=== PATIENT | male | born 1980 | race African-American/Black ===

== ENCOUNTER 2020-08-10 06:20 | Inpatient (IN) | payer OTHER, SELFPAY ==
[~2020-08-10] VITALS: Ht 172.7 cm; Wt 33.1 kg
[2020-08-10] VITALS (9 sets, daily range): BP systolic 112–139; BP diastolic 60–87
--- NOTE | 2020-08-10 06:23 | NUR ---
PT DUONG BLS. TAKEN TO BED 3
--- NOTE | 2020-08-10 07:08 | NUR ---
Dr. Singh examining patient.
--- NOTE | 2020-08-10 07:26 | NUR ---
REPORT RECEIVED FROM SIDNEY TIM, TRANSFER OF CARE AT THIS TIME.
--- NOTE | 2020-08-10 07:40 | NUR ---
39 YEAR OLD MALE BIBA FROM [facility] FOR PULLING OUT TRACH. PER PREVIOUS NURSE THE FACILITY ATTEMPTED TO PLACE TRACH BACK BUT WAS UNSUCESSFUL AND PLACED PT ON 2L NC. PT IS ON MONITOR, RR 20, SPO2 98% ON 2L NC. PT ALERT AND AWAKE, BREATHING EVEN AND UNLABORED, SKIN WARM AND DRY. BED IN LOWEST POSITION, LOCKED, BED RAIL UPX1. PMH - HTN, ARF, TRACH, DYSPHAGIA, ENCEPHALOPATHY, CONTRACTURES ALLERGIES - NKA
--- NOTE | 2020-08-10 08:00 | NUR ---
ERMD AT BEDSIDE WITH RT
--- NOTE | 2020-08-10 09:00 | NUR ---
PT ALERT AND AWAKE, BREATHING EVEN AND UNLABORED. NO DISTRESS NOTED.
[2020-08-10] MEDS ORDERED: ONDANSETRON 4 MG/2 ML VIAL IVP PRN (09:05)
[2020-08-10] MEDS ORDERED: HYDROcodone/APAP 5/325 MG 1 TAB TAB PO PRN (09:05)
[2020-08-10] MEDS ORDERED: ACETAMINOPHEN 325 MG TAB PO PRN (09:05)
[2020-08-10] MEDS ORDERED: MAG SULF 2000 MG/WATER PREMIX 50 ML IV PRN (09:05)
[2020-08-10] MEDS ORDERED: KCL 20 MEQ/WATER INJ PREMIX 200 ML IV PRN (09:05)
[2020-08-10] MEDS ORDERED: ZOLPIDEM 5 MG TAB PO PRN (09:05)
[2020-08-10] MEDS ORDERED: POTASSIUM CHLORIDE 10 MEQ TABER PO PRN (09:05)
[2020-08-10] MEDS ORDERED: MAGNESIUM OXIDE 400 MG TAB PO PRN (09:05)
[2020-08-10] MEDS ORDERED: LORazepam 1 MG TAB PO PRN (09:05)
--- NOTE | 2020-08-10 10:07 | NUR ---
Dr. Verduzco is evaluating the patient at bedside.
[2020-08-10] MEDS: DEXT 5% / NACL 0.45% 1,000 ML IV SCH ×2 (10:39→21:35)
[2020-08-10 10:41] LABS: BASOPHILS # (AUTO) 0.1 K/uL (0.00-0.22); BASOPHILS % (AUTO) 0.6 % (0.0-2.0); EOSINOPHILS # (AUTO) 0.3 K/uL (0-0.4); EOSINOPHILS % (AUTO) 3.6 % (0.0-4.0); HEMATOCRIT 46.3 % (36-52); HEMOGLOBIN 15.7 g/dL (12.0-18.0); LYMPHOCYTES # (AUTO) 3.2 K/uL (2.0-11.5); LYMPHOCYTES % (AUTO) 35.1 % (20.5-51.1); MEAN CORPUSCULAR HEMOGLOBIN 32 pg (27-31); MEAN CORPUSCULAR HGB CONC 34 g/dL (33-37); MONOCYTES # (AUTO) 0.6 K/uL (0.8-1.0); NEUTROPHILS % (AUTO) 53.7 % (42.2-75.2); PLATELET COUNT (AUTO) 204 K/uL (140-450); RED BLOOD CELL COUNT(AUTO) 4.93 MIL/uL (4.20-6.10); RED CELL DISTRIBUTION WIDTH 13.2 % (11.6-13.7); WHITE BLOOD COUNT (AUTO) 9.2 K/uL (4.8-10.8)
[2020-08-10 10:52] LABS: ANION GAP 12.3 (8-16); CREATININE 0.6 mg/dL (0.6-1.3); POTASSIUM 4.3 mmol/L (3.5-5.1)
[2020-08-10 10:58] LABS: ALBUMIN 3.9 g/dL (3.4-5.0); TOTAL BILIRUBIN 0.5 mg/dL (0.0-1.0)
--- NOTE | 2020-08-10 11:04 | NUR ---
PT ALERT AND AWAKE, BREATHING EVEN AND UNLABORED. NO DISTRESS NOTED.
[2020-08-10 11:14] LABS: PROTHROMBIN TIME 10.6 secs (10.8-13.4)
[2020-08-10] MEDS: ALBUTEROL SULFATE/IPRATROPIU 3 ML SOL IH SCH ×2 (13:00→19:00)
[2020-08-10] MEDS ORDERED: MULT-2253 GT (13:09)
[2020-08-10] MEDS ORDERED: CRAN450T5 GT (13:09)
[2020-08-10] MEDS ORDERED: SCOP1PAT TP (13:09)
[2020-08-10] MEDS ORDERED: ASPI-1822 GT (13:09)
[2020-08-10] MEDS ORDERED: FAMO-90 GT (13:09)
[2020-08-10] MEDS ORDERED: METO25TA PO (13:09)
[2020-08-10] MEDS ORDERED: BACL10TA4 GT (13:09)
[2020-08-10] MEDS ORDERED: KEP500L GT (13:09)
[2020-08-10] MEDS ORDERED: VALP-22 GT (13:09)
[2020-08-10] MEDS ORDERED: ASCO500T95 PO (13:09)
[2020-08-10] MEDS ORDERED: CHLO118S1 MT (13:09)
--- NOTE | 2020-08-10 13:33 | NUR ---
PT REPORT GIVEN TO CARMELITA FROM SURGICAL TEAM, PT TAKEN TO SURGERY AT THIS TIME
--- NOTE | 2020-08-10 13:33 | NUR ---
[facility] in [facility] - 08/10/20 at 1335 by MEDRobelJ PT TAKEN TO SURGERY BY CARMELITA
--- NOTE | 2020-08-10 13:36 | NUR ---
ATTEMPTED TO ADMNISTER SCHEDULED BREATHING TX PT BEING TAKEN TO OR AT THIS TIME. WILL CONTINUE TO MONITOR.
[2020-08-10] MEDS ORDERED: fentaNYL citrate 0.05 MG/ML VIAL ONE (14:10)
[2020-08-10] MEDS ORDERED: PROPOFOL 200 MG/20 ML VIAL IV ONE (14:10)
[2020-08-10] MEDS ORDERED: MIDAZOLAM 2 MG/2 ML VIAL ONE (14:10)
--- NOTE | 2020-08-10 15:20 | NUR ---
PT ARRIVED FROM OR S/P TRACH RE-PLACEMENT AND BRONCHOSCOPY, PT AWAKE, EYES OPEN, TRACKS, PT NON VERBAL, DOES NOT FOLLOW COMMAND, RESP EVEN UNLABORED WITH TRACH TO O2, PT SEVERELY CONTRACTED ON ALL EXT, SKIN WARM DRY COLOR WNL, SKIN INTACT, ALL SAFETY MEASURES IN PLACE, POC REVIEWED, WILL CONTINUE TO MOTNIOR.
--- NOTE | 2020-08-10 15:24 | NUR ---
PER REQUEST OF PT PLACED ON VENT. SETTINGS PROVIDED BY PHYSICIAN A/C VC 16, VT450, PEEP 5 AND FIO2 100%. PT NEW TRACH PORTEX [address]. NURSE AWARE OF PT STATUS. WILL CONTINUE TO MONITOR.
[2020-08-10] MEDS: VALPROIC ACID 250 MG/5 ML UDC GT SCH (17:00)
--- NOTE | 2020-08-10 17:20 | NUR ---
SCHEDULED MED GIVEN VIA GT, CLIFFORD VALVE CHANGED, LARGE AMOUNT GAS RELEASED UPON OPENING GT, NO RESIDUAL NOTED.
--- NOTE | 2020-08-10 17:50 | NUR ---
DR ROMERO AT BEDSIDE, NOTIFIED OF BLEEDING FROM TRACH SITE AND BLOODY EMESIS, REPEAT CBC AND TYPE AND SCREEN ORDERED, PT'S MARCE PHONED TO NOTIFY OF ADMISSION AND CONSENTED FOR BLOOD TRANSFUSION IN CASE NEEDED.
--- NOTE | 2020-08-10 19:02 | NUR ---
PT WITH BLOODY EMESIS AND WOOZING AT TRACH SITE, CALLED DR KUMAR IN OR TO REQUEST RE-EVALUATION.
--- NOTE | 2020-08-10 20:00 | NUR ---
RECEIVED PATIENT ON BED WITH HOB ELEVATED TO 30 DEGREE; ON TRACH TO VENT AT 70% FIO2 S02 98%.CARDIACSCOPE SHOWS ON SINUS TACHY WITH OCCASIONAL PVC'S . COMMENING ON IVF D5 1/2 NS AT 80 ML/HR VIA G 20 IV CANNULA ON LEFT AC; PATENT AND INTACT. ABDOMEN IS SOFT, OBESE; G TUBE IN PLACE AND NOTED PATIENT HAD ON AND OFF COFFEE GROUND EMESIS ; KEPT PATIENT ON NPO.
[2020-08-10 20:39] LABS: BASOPHILS # (AUTO) 0.1 K/uL (0.00-0.22); BASOPHILS % (AUTO) 0.5 % (0.0-2.0); EOSINOPHILS # (AUTO) 0.2 K/uL (0-0.4); EOSINOPHILS % (AUTO) 1.7 % (0.0-4.0); HEMATOCRIT 48.2 % (36-52); HEMOGLOBIN 16.2 g/dL (12.0-18.0); LYMPHOCYTES # (AUTO) 2.9 K/uL (2.0-11.5); LYMPHOCYTES % (AUTO) 25.9 % (20.5-51.1); MEAN CORPUSCULAR HEMOGLOBIN 32 pg (27-31); MEAN CORPUSCULAR HGB CONC 34 g/dL (33-37); MEAN CORPUSCULAR VOLUME 94.4 fL (80-94); MONOCYTES # (AUTO) 0.8 K/uL (0.8-1.0); NEUTROPHILS # (AUTO) 7.2 K/uL (1.8-7.7); NEUTROPHILS % (AUTO) 64.9 % (42.2-75.2); RED BLOOD CELL COUNT(AUTO) 5.11 MIL/uL (4.20-6.10); RED CELL DISTRIBUTION WIDTH 12.8 % (11.6-13.7)
[2020-08-10] MEDS: levETIRAcetam 100 MG/ML ORASYR GT SCH (21:00)
[2020-08-10] MEDS: ASCORBIC ACID 500 MG/5 ML ORASYR GT SCH (21:00)
[2020-08-10] MEDS ORDERED: SCOPOLAMINE 1.5 MG/72 HR PATCH TD SCH (21:00)
[2020-08-10] MEDS: BACLOFEN 10 MG TAB GT SCH (21:00)
[2020-08-10 22:18] LABS: PLATELET COUNT (AUTO) 134 K/uL (140-450)
--- NOTE | 2020-08-10 22:45 | NUR ---
PATIENT STILL HAD COFFEE GROUND VOMITTING; G TUBE CONNECTED TO INTERMITTENT SUCTION ORDERED BY DR. HUGHES.
[2020-08-11] VITALS (12 sets, daily range): BP systolic 110–154; BP diastolic 51–83
--- NOTE | 2020-08-11 00:30 | NUR ---
MARTEL CATH INSERTED; HAD BM TO A LARGE AMOUNT OF SOFT, PASTY YELLOW STOOL; KEPT CLEAN, DRY AND COMFORTABLE.
[2020-08-11] MEDS: ALBUTEROL SULFATE/IPRATROPIU 3 ML SOL IH SCH ×3 (01:00→12:54)
--- NOTE | 2020-08-11 04:00 | NUR ---
STILL WITH COFFEE GROUND GASTRIC OUTPUT FROM THE G TUBE. MORNING CARE DONE
[2020-08-11] MEDS: levETIRAcetam 100 MG/ML ORASYR GT SCH ×2 (05:00→13:13)
[2020-08-11 06:00] LABS: BASOPHILS # (AUTO) 0.1 K/uL (0.00-0.22); BASOPHILS % (AUTO) 0.5 % (0.0-2.0); EOSINOPHILS # (AUTO) 0.2 K/uL (0-0.4); EOSINOPHILS % (AUTO) 1.5 % (0.0-4.0); HEMATOCRIT 48.2 % (36-52); HEMOGLOBIN 16.2 g/dL (12.0-18.0); LYMPHOCYTES # (AUTO) 2.9 K/uL (2.0-11.5); LYMPHOCYTES % (AUTO) 20.4 % (20.5-51.1); MEAN CORPUSCULAR HEMOGLOBIN 32 pg (27-31); MEAN CORPUSCULAR HGB CONC 34 g/dL (33-37); MEAN CORPUSCULAR VOLUME 94.4 fL (80-94); MONOCYTES # (AUTO) 1.4 K/uL (0.8-1.0); MONOCYTES % (AUTO) 9.6 % (1.7-9.3); NEUTROPHILS # (AUTO) 9.6 K/uL (1.8-7.7); PLATELET COUNT (AUTO) 209 K/uL (140-450); RED CELL DISTRIBUTION WIDTH 13.1 % (11.6-13.7); WHITE BLOOD COUNT (AUTO) 14.1 K/uL (4.8-10.8)
[2020-08-11 06:17] LABS: MAGNESIUM 1.9 mg/dL (1.8-2.4); PHOSPHORUS 3.9 mg/dL (2.5-4.9)
[2020-08-11 06:29] LABS: ALBUMIN 3.9 g/dL (3.4-5.0); CREATININE 0.7 mg/dL (0.6-1.3); TOTAL BILIRUBIN 0.6 mg/dL (0.0-1.0)
--- NOTE | 2020-08-11 07:20 | NUR ---
ENDORSED TO AM SHIFT RN LEONEL FOR CONTINUITY OF CARE.
--- NOTE | 2020-08-11 07:30 | NUR ---
RECEIVE REPORT FROM OLEKSANDR RN HE IS TRACH TO VENT ALL EXTREAMITY SEVERELY CONTRACTED NECK IS CONTRACTED TO LEFT SIDE' TRACH TO VENT FIO2 70% SAT 100% ABDO MEN FLAT, GTUBETO INTERMITTEN SUCTION HAS COFFEE GROUND RETURN. MARTEL CATH DRAIN YELLOW URINE.
--- NOTE | 2020-08-11 08:00 | NUR ---
ORAL CARE WITH VAP KIT. SKIN CARE GIVEN.
--- NOTE | 2020-08-11 08:22 | NUR ---
PATIENT HAS BEEN SCREENED AND CATEGORIZED HIGH NUTRITION RISK. PATIENT WILL BE SEEN WITHIN 1-2 DAYS OF ADMISSION. 08/11/[address]
[2020-08-11] MEDS ORDERED: FAMOTIDINE 20 MG TAB GT SCH (09:00)
[2020-08-11] MEDS ORDERED: METOPROLOL 25 MG TAB GT SCH (09:00)
[2020-08-11] MEDS ORDERED: DOCUSATE SODIUM 100 MG GELCAP PO SCH (09:00)
--- NOTE | 2020-08-11 09:15 | NUR ---
VISIT BY DR ENCARNACION AT BEDSIDE , ORDER RECEIVE FIO2 DECREASE FROM 70 % TO 30% . D/C IV FLUID AND G. TUBE TO SUCTION .START GT FEEDING MED AND FLUID VAI GT,.
--- NOTE | 2020-08-11 09:44 | NUR ---
at bedside and decreased fio2 to 30%
[2020-08-11] MEDS: BACLOFEN 10 MG TAB GT SCH (09:56)
[2020-08-11] MEDS: VALPROIC ACID 250 MG/5 ML UDC GT SCH ×2 (09:57→13:13)
[2020-08-11] MEDS: ASCORBIC ACID 500 MG/5 ML ORASYR GT SCH (09:58)
--- NOTE | 2020-08-11 10:00 | NUR ---
DC LOCKSTITCH TOPSTITCHER: PATIENT WILL DC BACK TO [facility] TODAY. PER NATALEE AT [facility] PATIENT CAN GO TO ROOM 8-A UNDER DR. ROMERO. Addendum: 08/11/20 at 1048 by Carolina Feliciano CM DC LOCKSTITCH TOPSTITCHER: SET UP TRANSPORTATION WITH [facility] [phone] FOR 1:30 PM. NOTIFIED ICU NURSE AND NATALEE AT [facility].
--- NOTE | 2020-08-11 10:40 | NUR ---
RECEIVED CALL FROM [facility] GRANULAR OPERATOR FOR TRANSPORT WITH [facility] @ [phone] TO [facility].
--- NOTE | 2020-08-11 11:00 | NUR ---
SLEEPING. V/S WITH IN NORMAL LIMIT.
--- NOTE | 2020-08-11 12:43 | NUR ---
TALKED TO MARCE [phone], AWARE PT IS GOING BACK TO SNF
--- NOTE | 2020-08-11 13:40 | NUR ---
PICK UPBY [facility] TRANSFER TO [facility] . PT. CONDITION STABLE.
== END 2020-08-11 13:40 | DRG 143 ==
LOC: MED 06:20 → MTU 09:16 → MIC 15:14
PROVIDERS: ADMIT Hospitalist; ATTEND Hospitalist
PROC: 0BJ08ZZ Inspection of Tracheobronchial Tree, Via Natural or Artificial Opening Endoscopic (ICD-10-PCS; 2020-08-10)
PROC: 5A1935Z Respiratory Ventilation, Less than 24 Consecutive Hours (ICD-10-PCS; 2020-08-10)
PROC: 0B21XFZ Change Tracheostomy Device in Trachea, External Approach (ICD-10-PCS; principal; 2020-08-10 12:50)
DX: J95.03 Malfunction of tracheostomy stoma (principal); R53.2 Functional quadriplegia; G40.909 Epilepsy, unspecified, not intractable, without status epilepticus; R13.10 Dysphagia, unspecified; G93.40 Encephalopathy, unspecified; Y83.8 Other surgical procedures as the cause of abnormal reaction of the patient, or of later complication, without mention of misadventure at the time of the procedure; J96.11 Chronic respiratory failure with hypoxia; I10 Essential (primary) hypertension; M41.9 Scoliosis, unspecified; Z20.828 Contact with and (suspected) exposure to other viral communicable diseases; Z74.01 Bed confinement status; Z87.820 Personal history of traumatic brain injury; Y92.89 Other specified places as the place of occurrence of the external cause
CPT/HCPCS: 36415; 36600; 71045; 80053; 82803; 83036; 83735; 83880; 84100; 85025; 85610; 85730; 86886; 86900; 86901; 93005; 94002; 94003; 94640; 99285; J2250; J2405; J2704; J3010; U0003

== ENCOUNTER 2021-05-26 14:54 | Inpatient (IN) | payer OTHER, SELFPAY ==
[~2021-05-26] VITALS: Ht 172.7 cm; Wt 65.8 kg
[2021-05-26 14:54] VITALS: BP 105/55
[~2021-05-26 14:54] MED LIST: ASCO500T95 GT; ASPI-1822 GT; BACL10TA4 GT; CHLO118S1 MT; CRAN450T5 GT; FAMO-90 GT; KEP500L GT; METO25TA GT; MULT-2253 GT; SCOP0.333 TP; VALP-22 GT
--- NOTE | 2021-05-26 14:54 | NUR ---
PT BIBA AND PLACED IN BED 10.
--- NOTE | 2021-05-26 15:00 | NUR ---
40 Y/O M BIBA FROM [facility], C/O ABD PAIN (ACCORDING TO NURSE GIVING REPORT), ABD DISTENTION AND BLOOD IN MARTEL FROM YESTERDAY. [facility] REMOVED MARTEL YESTERDAY. PT VOIDED YESTERDAY. THIS MORNING, NO URINE OUTPUT WITH BLADDER DISTENDED. ATTEMPTED REINSERTION OF MARTEL, UNSUCCESSFUL. PT HAD FEVER 103 AT FACILITY AND ADMINISTERED TYLENOL 650MG AT 1230PM. PT TRACH TO VENT, G TUBE. PT IS CONTRACTED. PMH: SEVERE TBI, QUADRIPLEGIC, SDH CRANIECTOMY, TRAUMATIC ENCEPHALOPATHY, SEIZURES, DYSPHAGIA, CHRONIC RESPIRATORY FAILURE, ANEMIA NKA
[2021-05-26] MEDS ORDERED: PIPERACILLIN/TAZOBACTAM 3.375 GM in DEXTROSE 5% 50 ML IV ONE (15:05)
[2021-05-26] MEDS ORDERED: VANCOMYCIN 1,000 MG in DEXTROSE 5% 250 ML IV ONE (15:05)
[2021-05-26] MEDS ORDERED: NACL 0.9% 2,000 ML IV SCH (15:05)
[2021-05-26] MEDS ORDERED: NACL 0.9% 2,000 ML IV ONE (15:05)
[2021-05-26] MEDS ORDERED: ACETAMINOPHEN EXTRA STRENGTH 500 MG TAB GT ONE (15:05)
--- NOTE | 2021-05-26 15:20 | NUR ---
MILTON COLLECTED AND GIVEN TO BILLY PERRY
--- NOTE | 2021-05-26 15:25 | NUR ---
LABS COLLECTED AND GIVEN TO MACARIO. DRAWN AT 1505.
[2021-05-26] MEDS ORDERED: PIPERACILLIN/TAZOBACTAM 3.375 GM VIAL IV ONE ×2 (15:33→21:07)
[2021-05-26] MEDS ORDERED: FERR220E24 GT (15:43)
[2021-05-26] MEDS ORDERED: COL100L GT (15:43)
[2021-05-26] MEDS ORDERED: VANCOMYCIN 1,000 MG VIAL ONE (15:58)
[2021-05-26 16:04] LABS: PROTHROMBIN TIME 11.2 secs (10.8-13.4)
[2021-05-26 16:09] LABS: ALBUMIN 2.7 g/dL (3.4-5.0); ANION GAP 9.6 (8-16); CARBON DIOXIDE 30.2 mmol/L (21-32); CREATININE 0.7 mg/dL (0.6-1.3); POTASSIUM 3.8 mmol/L (3.5-5.1); TOTAL BILIRUBIN 0.3 mg/dL (0.0-1.0)
[2021-05-26 16:31] LABS: HEMATOCRIT 30.7 % (36-52); HEMOGLOBIN 10.4 g/dL (12.0-18.0); MEAN CORPUSCULAR HEMOGLOBIN 32 pg (27-31); MEAN CORPUSCULAR HGB CONC 34 g/dL (33-37); MEAN CORPUSCULAR VOLUME 95.8 fL (80-94); PLATELET COUNT (AUTO) 193 K/uL (140-450); RED BLOOD CELL COUNT(AUTO) 3.21 MIL/uL (4.20-6.10); RED CELL DISTRIBUTION WIDTH 12.8 % (11.6-13.7); WHITE BLOOD COUNT (AUTO) 15.6 K/uL (4.8-10.8)
[2021-05-26 16:38] LABS: LYMPHOCYTES % (MANUAL) 5 % (20-46); MONOCYTES % (MANUAL) 2 % (5-12)
[2021-05-26] MEDS ORDERED: LACTATED RINGERS 1,000 ML IV ONE (16:55)
[2021-05-26 17:40] LABS: APPEARANCE,URINE CLEAR (CLEAR); BILIRUBIN,URINE NEGATIVE (NEGATIVE); BLOOD, URINE 3+ (NEGATIVE); COLOR,URINE YELLOW (YELLOW); LEUKOCYTE ESTERASE ,URINE 2+ (NEGATIVE); NITRITE, URINE NEGATIVE (NEGATIVE); UGLUCOSE NEGATIVE (NEGATIVE)
--- NOTE | 2021-05-26 17:45 | NUR ---
PT WAS TAKEN TO CT WITH RN.
[2021-05-26 18:04] LABS: RBC,URINE 11-20 (MOD) /HPF (0-5); WBC,URINE 20-60 /HPF (0-5)
[2021-05-26] MEDS ORDERED: ALBUTEROL 0.083% 2.5 MG/3 ML NEBU INH PRN (18:25)
[2021-05-26] MEDS ORDERED: ACETAMINOPHEN 325 MG TAB PO PRN (18:25)
[2021-05-26] MEDS ORDERED: MORPHINE SULFATE 2 MG/ML SYR IVP PRN (18:25)
[2021-05-26] MEDS ORDERED: LORazepam 2 MG/ML VIAL IVP PRN (18:25)
[2021-05-26] MEDS: NACL 0.9% 1,000 ML IV SCH (18:25)
[2021-05-26] MEDS ORDERED: ONDANSETRON 4 MG/2 ML VIAL IVP PRN (18:25)
[2021-05-26] MEDS ORDERED: VANCOMYCIN PER PHARMACY MC PRN (18:30)
--- NOTE | 2021-05-26 18:46 | NUR ---
NO WOUNDS UPON ASSESSMENT.
--- NOTE | 2021-05-26 18:46 | NUR ---
IV ON HAND WAS PULLED DURING TURNING, WILL RESTART.
--- NOTE | 2021-05-26 19:20 | NUR ---
RECIEVED REPORT FROM MEETA CHING. TRANSFER OF CARE AT THIS TIME.
--- NOTE | 2021-05-26 20:00 | NUR ---
PT. IN SUPINE POSITION, SUCTIONED FOR MUCUS. PULSE OX AT 100% ON 4L TRACH COLLAR
[2021-05-26] MEDS: PIPERACILLIN/TAZOBACTAM 3.375 GM in DEXTROSE 5% 50 ML IV SCH (21:17)
--- NOTE | 2021-05-26 23:50 | NUR ---
Patient will be admitted to care of DR. MCMULLEN. Admited to TELEMETRY UNIT. Will go to room 125B. Belongings list completed. Report to MEETA Jones.
--- NOTE | 2021-05-27 00:15 | NUR ---
PT. TAKEN TO TELEMETRY UNIT, ROOM 125B VIA RNEY. ACCOMPANIED BY EMT AND RN.
[2021-05-27 00:30] VITALS: BP 110/70
--- NOTE | 2021-05-27 00:30 | NUR ---
RECEIVED REPORT FROM ER NURSE, PT IN STABLE CONDITION. PT TRANSFERRED VIA GURNEY TO ROOM 125 BED B. HE IS AOX1 WITH TRACH TO T BAR. RUNNING HUMIDIFIED AIR AT 7 LITERS. MRSA SWAB DONE, V/S STABLE. HE HAS A MARTEL CATHETER INTACT AND 2000 MLS OF YELLOW URINE WAS DRAINED. PT REPOSITIONED IN BED SKIN INTACT. ALL ORDERED PRECAUTIONS IN PLACE.
--- NOTE | 2021-05-27 01:00 | NUR ---
NORMAL SALINE STARTED AND IS RUNNING AT 125MLS/HR. VIA RIGHT UPPER ARM 18G. PT ALSO HAS A RIGHT FOOT 18G INTACT AND SALINE LOCKED. ALL ORDERED PRECAUTIONS IN PLACE.
[2021-05-27] MEDS: NACL 0.9% 1,000 ML IV SCH ×3 (02:33→18:59)
[2021-05-27] MEDS ORDERED: VANCOMYCIN 1GM/DEXT 5% PREMIX 200 ML IV SCH (04:00)
[2021-05-27] MEDS: PIPERACILLIN/TAZOBACTAM 3.375 GM in DEXTROSE 5% 50 ML IV SCH ×3 (05:00→20:05)
[2021-05-27 06:17] LABS: BASOPHILS # (AUTO) 0.1 K/uL (0.00-0.22); BASOPHILS % (AUTO) 0.4 % (0.0-2.0); EOSINOPHILS % (AUTO) 0.2 % (0.0-4.0); HEMATOCRIT 30.8 % (36-52); HEMOGLOBIN 10.2 g/dL (12.0-18.0); LYMPHOCYTES # (AUTO) 1.4 K/uL (2.0-11.5); LYMPHOCYTES % (AUTO) 11.2 % (20.5-51.1); MEAN CORPUSCULAR HEMOGLOBIN 32 pg (27-31); MEAN CORPUSCULAR HGB CONC 33 g/dL (33-37); MONOCYTES # (AUTO) 1.1 K/uL (0.8-1.0); MONOCYTES % (AUTO) 8.6 % (1.7-9.3); NEUTROPHILS % (AUTO) 79.6 % (42.2-75.2); PLATELET COUNT (AUTO) 188 K/uL (140-450); RED BLOOD CELL COUNT(AUTO) 3.21 MIL/uL (4.20-6.10); RED CELL DISTRIBUTION WIDTH 13.2 % (11.6-13.7); WHITE BLOOD COUNT (AUTO) 12.6 K/uL (4.8-10.8)
[2021-05-27] MEDS ORDERED: PIPERACILLIN/TAZOBACTAM 3.375 GM VIAL IV ONE (06:42)
[2021-05-27 06:44] LABS: ALBUMIN 2.3 g/dL (3.4-5.0); ANION GAP 9.4 (8-16); CARBON DIOXIDE 28.6 mmol/L (21-32); CREATININE 0.5 mg/dL (0.6-1.3); MAGNESIUM 1.7 mg/dL (1.8-2.4); PHOSPHORUS 2.4 mg/dL (2.5-4.9); TOTAL BILIRUBIN 0.2 mg/dL (0.0-1.0)
[2021-05-27 08:00] VITALS: BP_SYST 108; BP_SYST 112; BP_DIAS 65; BP_DIAS 67
--- NOTE | 2021-05-27 08:00 | NUR ---
NURSE NOTES REPORT OBTAINED FROM SENIOR SAS DEVELOPER NURSE RUDOLPH AT 0730 AND THIS NURSE ASSUMED CARE OF PATIENT. IV NS AT 125 ML/HR. VSS. AFEB. MARTEL DRAINING YELLOW URINE. NO SXS OF PAIN OR DISCOMFORT. TRACH TO T-PIECE AND SUCTIONED THIS AM.
--- NOTE | 2021-05-27 08:00 | NUR ---
TELE WITH ST 107.
--- NOTE | 2021-05-27 08:47 | NUR ---
PATIENT HAS BEEN SCREENED AND CATEGORIZED HIGH NUTRITION RISK. PATIENT WILL BE SEEN WITHIN 1-2 DAYS OF ADMISSION. 05/27/21-05/28/21 [facility] REFERRAL WAS RECEIVED FOR DYSPHAGIA AND TUBE FEEDING AUDRA GARCIA RD
[2021-05-27] MEDS: VANCOMYCIN 1,000 MG in DEXTROSE 5% 250 ML IV SCH ×2 (09:00→21:06)
[2021-05-27] MEDS: ENOXAPARIN 40 MG/0.4 ML SYR SUBQ SCH (09:00)
[2021-05-27 12:00] VITALS: BP 112/67
--- NOTE | 2021-05-27 12:00 | NUR ---
NURSE NOTES VSS. AFEB. TELE SR 87. NO SXS OF PAIN OR DISCOMFORT. BATH GIVEN BY GREIGE GOODS INSPECTOR. LINEN CHANGED.
--- NOTE | 2021-05-27 12:29 | NUR ---
RECEIVED TORB FOR TUBE FEEDING RECOMMENDATIONS FOR JEVITY 1.2 @ 70 ML/HR WITH VITAMIN C AND MULTIVITAMIN, WHICH WERE APPROVED BY DR. TURNER.
--- NOTE | 2021-05-27 13:31 | NUR ---
05/27/21 RD INITIAL ASSESSMENT COMPLETED PLEASE REFER TO NUTRITION ASSESSMENT UNDER CARE ACTIVITY FOR ESTIMATED NUTRITIONAL NEEDS. 1. RECOMMEND JEVITY 1.2 @ 70 ML/HR; START AT 20 ML/HR Q6H 2. RECOMMEND FREE WATER FLUSH OF 250 ML Q6H 3. RECOMMEND VITAMIN C 500 MG AND MULTIVITAMIN ONCE DAILY 3. RD TO FOLLOW-UP 2-3 DAYS, HIGH RISK AUDRA GARCIA, RD
[2021-05-27 16:00] VITALS: BP 104/69
--- NOTE | 2021-05-27 16:00 | NUR ---
NURSE NOTES VSS. AFEB. TELE WITH ST 106. NO SXS OF PAIN OR DISCOMFORT.
--- NOTE | 2021-05-27 18:00 | NUR ---
NURSE NOTES ON IVPB ANTIBIOTICS OF VANCO AND ZOSYN. AFEB. MARTEL DRAINED 875 ML YELLOW URINE. IV NS AT 125 ML/HR.
--- NOTE | 2021-05-27 19:15 | NUR ---
NURSE REPORT AND ENDORSEMENT REPORT GIVEN TO NIGHT NURSE SIXTO TO ASSUME CARE OF PATIENT. SBAR GIVEN AND ALL QUESTIONS ASKED. MAO MCCALL RN
--- NOTE | 2021-05-27 19:15 | NUR ---
RECEIVED BEDSIDE REPORT FROM DAY RN. PT APPEARS TO BE ASLEEP. PT HX TBI IN 2018. APHASIC. BEDBOUND. RESPIRATION ARE EQUAL AND UNLABORED TRACH TO T PIECE AT 2L. C/C ABD PAIN CAME FROM [facility]. DX UROSEPSIS. MARTEL CATH IN PLACE DRAINING CLOUDY YELLOW URINE. IV ON RUA18G NS INFUSING PER ORDERS. IV ON R FOOT 18G SL. PATIENT ON STANDARD ISOLATION. GTUBE WITH JEVITY 1.2 AT 20ML/H GOAL 70ML/H STARTED AT 1900 PER RN. FWF 110ML/Q4H. PER RN SKIN INTACT. POC DISCUSSED WITH PT. PT UNABLE TO COMPREHEND. SAFETY MEASURES ARE IN PLACE.
[2021-05-27 20:00] VITALS: BP 119/76
[2021-05-27] MEDS: ASCORBIC ACID 500 MG/5 ML ORASYR GT SCH (21:05)
--- NOTE | 2021-05-27 21:05 | NUR ---
VSS. WILBERT MEDICATION GIVEN PER ORDERS. PT WITH NO RESIDUALS NOTED. TUBE FEEDING INCREASED TO 40ML/H PER ORDERS. PATIENT WAS REPOSITION. ORAL CARE PROVIDED. HOB ELEVATED. SAFETY MEASURES ARE IN PLACE. WILL CONTINUE TO MONITOR.
[2021-05-27] MEDS ORDERED: MAG SULF 2000 MG/WATER PREMIX 50 ML IV SCH (23:00)
[2021-05-28] VITALS: BP 120/83
--- NOTE | 2021-05-28 | NUR ---
VSS. ORAL CARE PROVIDED. PATIENT WAS REPOSITION FOR COMFORT. NO GASTRIC RESIDUALS NOTED. TUBE FEEDING INCREASED TO 60ML/H. HOB ELEVATED. WILL CONTINUE TO MONITOR.
--- NOTE | 2021-05-28 02:19 | NUR ---
ROUNDS MADE. PT OBSERVED RESTING IN BED APPEARS TO BE ASLEEP. CHEST RISE AND FALL NOTED. CALL LIGHT WITHIN REACH. WILL CONTINUE TO MONITOR.
[2021-05-28 04:00] VITALS: BP 118/78
--- NOTE | 2021-05-28 04:00 | NUR ---
VITAL SIGNS ARE WITHIN NORMAL LIMITS. ALL SAFETY MEASURES ARE IN PLACE. WILL CONTINUE TO MONITOR.
[2021-05-28] MEDS: PIPERACILLIN/TAZOBACTAM 3.375 GM in DEXTROSE 5% 50 ML IV SCH ×3 (04:01→21:15)
--- NOTE | 2021-05-28 05:15 | NUR ---
PATIENT WAS CLEANED AND REPOSITION FOR COMFORT. SAFETY MEASURES ARE IN PLACE. WILL CONTINUE TO MONITOR.
--- NOTE | 2021-05-28 07:31 | NUR ---
GAVE SHIFT REPORT TO AM SHIFT RN, PT ENDORSED IN STABLE CONDITION.
[2021-05-28 08:00] VITALS: BP 129/77
--- NOTE | 2021-05-28 08:00 | NUR ---
NURSE REPORT REPORT OBTAINED FROM NIGHT NURSE CURT AND THIS NURSE ASSUMED CARE OF PATIENT. VS TAKEN. TEMP 100.6, WILL CONTINUE TO MONITOR. ON VANCO AND ZOSYN. NO SXS OF PAIN OR DISCOMFORT. MARTEL DRAINING YELLOW URINE. GT FEEDING OF JEVITY 1.2 AT 70 ML/HR WITH WATER FLUSHED 110 ML EVERY 4 HRS. T-PIECE TO 28% o2.
[2021-05-28] MEDS: ENOXAPARIN 40 MG/0.4 ML SYR SUBQ SCH (09:00)
--- NOTE | 2021-05-28 09:06 | NUR ---
RCV'D PT ON COOL AEROSOL 28% FIO2. PT HAS PORTEX [address] TRACH. TRACH IS IN PLACE AND SECURED. NO SOB OR DISTRESS NOTED. SXN'D PT. STERILE WATER CHANGED FOR COOL AEROSOL. WILL CONTINUE TO MONITOR PATIENT.
--- NOTE | 2021-05-28 09:30 | NUR ---
PHARMACY STATED VANCO TROUGH WAS 9.5 AND VANCO WILL BE CHANGED TO 1250 MG.
[2021-05-28] MEDS: VANCOMYCIN HCL 1.25 GM in DEXTROSE 5% 250 ML IV SCH ×2 (10:05→22:47)
[2021-05-28] MEDS: MULTIVITAMIN/MINERALS 1 TAB GT SCH (10:05)
[2021-05-28] MEDS: ASCORBIC ACID 500 MG/5 ML ORASYR GT SCH ×2 (10:05→21:15)
[2021-05-28] MEDS: NACL 0.9% 1,000 ML IV SCH ×3 (10:25→21:16)
[2021-05-28 12:00] VITALS: BP 123/69
--- NOTE | 2021-05-28 12:00 | NUR ---
NURSE NOTES VSS. AFEB. TELE MONITOR SR [address] NO SXS OF PAIN OR DISCOMFORT. GT FEEDING TOLERATING WELL. NO RESIDUAL.
[2021-05-28 13:08] LABS: BASOPHILS % (AUTO) 0.6 % (0.0-2.0); EOSINOPHILS # (AUTO) 0.1 K/uL (0-0.4); EOSINOPHILS % (AUTO) 1.3 % (0.0-4.0); HEMATOCRIT 29.2 % (36-52); HEMOGLOBIN 9.8 g/dL (12.0-18.0); LYMPHOCYTES % (AUTO) 36.4 % (20.5-51.1); MEAN CORPUSCULAR HEMOGLOBIN 32 pg (27-31); MEAN CORPUSCULAR HGB CONC 34 g/dL (33-37); MEAN CORPUSCULAR VOLUME 94.4 fL (80-94); MONOCYTES # (AUTO) 0.7 K/uL (0.8-1.0); MONOCYTES % (AUTO) 13.4 % (1.7-9.3); NEUTROPHILS # (AUTO) 2.7 K/uL (1.8-7.7); NEUTROPHILS % (AUTO) 48.3 % (42.2-75.2); PLATELET COUNT (AUTO) 199 K/uL (140-450); RED BLOOD CELL COUNT(AUTO) 3.09 MIL/uL (4.20-6.10); WHITE BLOOD COUNT (AUTO) 5.5 K/uL (4.8-10.8)
[2021-05-28 13:40] LABS: ALBUMIN 2.3 g/dL (3.4-5.0); ANION GAP 12.2 (8-16); CARBON DIOXIDE 25.4 mmol/L (21-32); CREATININE 0.6 mg/dL (0.6-1.3); POTASSIUM 3.6 mmol/L (3.5-5.1); TOTAL BILIRUBIN 0.2 mg/dL (0.0-1.0)
[2021-05-28 16:00] VITALS: BP 124/72
--- NOTE | 2021-05-28 16:00 | NUR ---
NURSE NOTES VS TAKEN. TEMP 99.[address] 103. IV INFUSING AT 125 ML/HR. RECEIVED ZOSYN. MARTEL DRAINED 1720 ML
--- NOTE | 2021-05-28 19:40 | NUR ---
NURSE REPORT AND ENDORSEMENT REPORT GIVEN TO NIGHT NURSE KAUSHAL TO ASSUMED CARE OF PATIENT. IN STABLE CONDITION.
--- NOTE | 2021-05-28 19:45 | NUR ---
RECIEVED BEDSIDE ENDORSEMENT FROM DAY SHIFT RN, PT LYING IN BED RESTING, A&OX0, APHASIC, ST ON MONITOR, TRACH TO T PIECE 5 L, G TUBE IN PLACE INFUSING JEVITY @ 70MLS/HR, FC IN PLACE DRAINING VIA GRAVITY, PT FULLY CONTRACTED, SKIN WARM DRY AND NON INTACT/SEE WOUND ASSESSMENT, AUGUST 18 G PIV INFUSING NS @ 125MLS/HR, PT SHOWING NO SIGNS OF ACUTE DISTRESS, SAFEY MEASURES IN PLACE, WILL CONTINUE WITH CURRENT POC
[2021-05-28 20:00] VITALS: BP 133/72
--- NOTE | 2021-05-28 21:29 | NUR ---
ADMINISTERED 2100H MEDICATIONS PER MD ORDERS
--- NOTE | 2021-05-28 22:47 | NUR ---
ADMINISTERED 2200H MEDICATIONS PER MD ORDERS
[2021-05-29] VITALS: BP 105/61
--- NOTE | 2021-05-29 00:27 | NUR ---
REPOSITIONED PT, ORAL CARE PROVIDED, NO SIGNS OF ACUTE DISTRESS
--- NOTE | 2021-05-29 01:46 | NUR ---
sxned patient moderate amt of yellow secretions
[2021-05-29] MEDS: NACL 0.9% 1,000 ML IV SCH ×2 (02:06→09:07)
[2021-05-29 04:00] VITALS: BP 135/92
[2021-05-29] MEDS: PIPERACILLIN/TAZOBACTAM 3.375 GM in DEXTROSE 5% 50 ML IV SCH ×2 (04:17→12:28)
--- NOTE | 2021-05-29 04:17 | NUR ---
ADMINISTERED 0500H MEDICATION PER MD ORDERS
--- NOTE | 2021-05-29 05:44 | NUR ---
0500 TRACH CARE DONE. SXNED PT LARGE AMTS PALE YELLOW SECRETIONS
--- NOTE | 2021-05-29 07:29 | NUR ---
ENDORSED TO DAY SHIFT RN FOR CONTINUITY OF CARE
--- NOTE | 2021-05-29 07:30 | NUR ---
RECEIVED BEDSIDE ENDORSEMENT FROM primary substance abuse counselor RN, PT LYING IN BED RESTING, A&OX0, APHASIC, SR ON TELE MONITOR, TRACH TO T PIECE 5 L, G TUBE IN PLACE INFUSING JEVITY @ 70MLS/HR, FC IN PLACE DRAINING VIA GRAVITY WITH CLEAR PALE URINE, PT FULLY CONTRACTED, SKIN WARM DRY AND NON INTACT/SEE WOUND ASSESSMENT, AUGUST 18 G IV INFUSING NS @ 125MLS/HR, PT SHOWING NO SIGNS OF ACUTE DISTRESS, SAFETY MEASURES IN PLACE, WILL CONTINUE WITH CURRENT POC.
[2021-05-29 08:00] VITALS: BP 122/78
[2021-05-29] MEDS: ASCORBIC ACID 500 MG/5 ML ORASYR GT SCH (09:06)
[2021-05-29] MEDS: MULTIVITAMIN/MINERALS 1 TAB GT SCH (09:07)
[2021-05-29] MEDS: ENOXAPARIN 40 MG/0.4 ML SYR SUBQ SCH (09:08)
[2021-05-29] MEDS: VANCOMYCIN HCL 1.25 GM in DEXTROSE 5% 250 ML IV SCH (09:10)
--- NOTE | 2021-05-29 09:10 | NUR ---
SCHEDULED MEDICATIONS GIVEN VIA GTUBE. GTUBE AUSCULTATED FOR PLACEMENT. PATIENT TOLERATED THEM. ALL NEEDS MET AT THIS TIME. WILL CONTINUE TO MONITOR PATIENT.
--- NOTE | 2021-05-29 10:35 | NUR ---
PATIENT HAD BIG FORMED BROWN BM. PATIENT CLEANED UP AND CHANGED. PATIENT REPOSITIONED FOR COMFORT AND TO OFFLOAD PRESSURE AREAS. ALL NEEDS MET AT THIS TIME. WILL CONTINUE TO MONITOR PATIENT.
[2021-05-29] MEDS ORDERED: AMOX75PD47 PO (11:22)
[2021-05-29] MEDS ORDERED: PRON INH (11:22)
--- NOTE | 2021-05-29 11:39 | NUR ---
(05/29/21) RD FOLLOW UP COMPLETED PLEASE REFER TO NUTRITION PROGRESS NOTE UNDER CARE ACTIVITY FOR ESTIMATED NUTRITION NEEDS. RD RECOMMENDATIONS: 1. CONTINUE JEVITY 1.2 @ 70 ML/HR TOLERATED 2. CONTINUE FREE WATER FLUSH OF 250 ML Q6H 3. CONTINUE VITAMIN C 500 MG AND MULTIVITAMIN ONCE DAILY 4. RD TO FOLLOW-UP 2-3 DAYS, HIGH RISK REHAN GONZALEZ, MS, RDN
--- NOTE | 2021-05-29 12:00 | NUR ---
WOUND CARE EVALUATION NOTES: REASON FOR EVALUATION: LEFT FOOT SKIN TEAR. WOUND ASSESSMENT COMPLETED ON THIS 40 Y/O MALE ADMITTED TO [facility] FOR UROSEPSIS. PATIENT IS FROM [facility]. PAST MEDICAL HISTORY INCLUDES TBI S/P CRANIOTOMY, CHRONIC DYSPHAGIA, TRACH TO VENT, GTUBE, SEIZURE DISORDER, HTN, QUADRIPLEGIA. ALL ABOVE INFORMATION WAS OBTAINED FROM THE ADMISSION H&P. LABS ARE WBC 5.5, H/H 9.8/29.2, GLUCOSE 119, ALBUMIN 2.3. PATIENT IS AAOX1, APHASIC. SKIN IS WARM TO TOUCH AND COLOR APPROPRIATE TO ETHNICITY. HAS BUE/BLE CONTRACTURES. ORAL MUCOSAL MEMBRANES DRY. REQUIRES TOTAL ASSISTANCE WITH TURNING. PLAN OF CARE AND PRESSURE PREVENTATIVE MEASURES DISCUSSED WITH PATIENT AND PRIMARY RN. PATIENT UNABLE TO COMPREHEND, APHASIC. PATIENT ADMITTED WITH SKIN TEAR ON LEFT DORSAL FOOT. COMORBIDITIES RELATED TO FURTHER SKIN BREAKDOWN SUCH IMPAIRED OR DECREASED MOBILITY AND DECREASED FUNCTIONAL ABILITY, LOW ALBUMIN LEVEL. INTEGUMENTARY: - LEFT DORSAL FOOT SKIN TEAR MEASURING 2 X 1.5 X 0.1 CM. WOUND BED PINK, DRY, BLANCHABLE RED, NO DRAINAGE, NO ODOR. PERIWOUND PINK, DRY INTACT. RECOMMENDATIONS: - LEFT DORSAL FOOT SKIN TEAR - CLEANSE WITH NS, PAT DRY, AND APPLY VERSATEL DRESSING EVERY 5 DAYS OR PRN IF SOILED. - OFFLOAD BILATERAL HEELS BY PLACING BILATERAL HEEL PROTECTORS. - TURN AND REPOSITION PATIENT Q2H TO LEFT AND RIGHT SIDE TO OFFLOAD PRESSURE POINTS. - ASSESS AND MONITOR SKIN CONDITION QSHIFT AND DURING POSITION CHANGES.
[2021-05-29 12:10] VITALS: BP 122/78
[2021-05-29 16:00] VITALS: BP 140/80
--- NOTE | 2021-05-29 16:13 | NUR ---
CALLED [facility] AND SPOKE TO HUBERT AND SHE GAVE ME AUTH FOR TRANSPORT [id number] AND FOR [facility] AUTH #[id number]. NOTIFIED [facility] FOR MIGRATORY GAME BIRD BIOLOGIST AT 5 PM,, MYRA RN MADE AWARE.
--- NOTE | 2021-05-29 16:45 | NUR ---
ATTEMPTED TO CALL [facility] TO GIVE REPORT. NO ANSWER, WAS ON HOLD FOR, WILL ATTEMPT TO CALL BACK.
--- NOTE | 2021-05-29 17:15 | NUR ---
CALLED [facility] AND GAVE REPORT TO MEETA CABRERA. PT WILL BE GOING TO ROOM 3B. CALLED PATIENT'S FAMILY MEMBER MARCE TALBOT TO UPDATE HER ABOUT PATIENT'S TRANSFER BACK TO [facility].
--- NOTE | 2021-05-29 17:20 | NUR ---
IVS REMOVED, CANNULA INTACT, MINIMAL BLEEDING NOTED. MARTEL INTACT PER REQUEST OF DEBORAH AT [facility]. PATIENT CHANGED. WILL CONTINUE TO MONITOR PATIENT AND WAIT FOR [facility] TO COME TO TRANSFER PATIENT BACK TO [facility].
--- NOTE | 2021-05-29 17:45 | NUR ---
PATIENT TRANSFERRED BACK TO [facility]. [facility] STAFF CAME, AND TRANSFERRED PATIENT TO ROOM 3B. PATIENT IN STABLE CONDITION.
== END 2021-05-29 17:45 | DRG 720 ==
LOC: MED 15:31 → MTU 18:29 → MMU 22:44
PROVIDERS: ADMIT Hospitalist; ATTEND Hospitalist
DX: A41.9 Sepsis, unspecified organism (principal); G82.50 Quadriplegia, unspecified; N30.00 Acute cystitis without hematuria; T83.518A Infection and inflammatory reaction due to other urinary catheter, initial encounter; D64.9 Anemia, unspecified; N20.0 Calculus of kidney; R13.10 Dysphagia, unspecified; R65.20 Severe sepsis without septic shock; I10 Essential (primary) hypertension; Z20.822 Contact with and (suspected) exposure to COVID-19; G40.909 Epilepsy, unspecified, not intractable, without status epilepticus; Y83.8 Other surgical procedures as the cause of abnormal reaction of the patient, or of later complication, without mention of misadventure at the time of the procedure; Z93.1 Gastrostomy status; Z74.01 Bed confinement status; Z87.820 Personal history of traumatic brain injury; Y92.89 Other specified places as the place of occurrence of the external cause
CPT/HCPCS: 36415; 71045; 80053; 80202; 81001; 82550; 82553; 82803; 83605; 83735; 83874; 83880; 84100; 84484; 85025; 85610; 85730; 87040; 87081; 87086; 87186; 93005; 96361; 96365; 96366; 99291; J1650; J2543; J3370; J3475; J7060; Q0092; Q9967